=== PATIENT | female | born 1965 | race Two or more races ===

== ENCOUNTER 2023-05-28 10:08 | Emergency (ER) | payer MEDICAID ==
[2023-05-28 15:07] VITALS: PULSE 66; RESP 18; O2SAT 96
[2023-05-28 15:17] VITALS: BP 140/88; PULSE 100; RESP 18; TEMP 98.8; O2SAT 98
[2023-05-28 15:25] LABS: Urine Bacteria NONE SEEN /hpf (None Seen); Urine Blood Negative /uL (Negative); Urine Clarity Clear (Clear); Urine Protein, UAD Negative (Negative); Urine Specific Gravity 1.006 (1.001-1.035); Urine Urobilinogen Normal (Negative); Urine WBC 1 /hpf (0 - 5); Urine pH 6.5 (5.0-8.0)
[2023-05-28 15:26] LABS: Urine Color Yellow (Yellow)
[2023-05-28] MEDS ORDERED: CEPH250C PO (15:56)
== END 2023-05-28 17:02 | disposition home or self-care (01) ==
LOC: ER 10:08
DX: N30.01 Acute cystitis with hematuria (principal)
CPT/HCPCS: 81001